=== PATIENT | male | born 1955 | race Caucasian/White ===

== ENCOUNTER 2018-05-05 19:31 | Emergency (ER) | payer BC ==
--- NOTE | 2018-05-05 19:57 | ER Document Report ---
ED Medical Screen (RME) - General Chief Complaint: Flank Pain Stated Complaint: ABNORMAL TEST RESULTS Time Seen by Provider: 05/05/18 19:56 TRAVEL OUTSIDE OF THE [place] IN LAST 30 DAYS: No - HPI Notes: 05/05/18 19:56 Left flank pain lateral pain ongoing since Wednesday went to urgent care elevated CK-MB sent to the ER for further evaluation for possible cardiac issues. States he did have a urinalysis performed however does not know the results. Patient denies any nausea vomiting or trauma. Patient has a chest x- ray performed showing no signs of rib injury EKG at the urgent care reviewed by myself shows no acute pathology. - Related Data Allergies/Adverse Reactions: No Known Allergies Allergy (Unverified 11/28/12 16:05) Past Medical History - Social History Frequency of alcohol use: Occasional Drug Abuse: None Renal/ Medical History: Denies: Hx Peritoneal Dialysis Review of Systems - Review of Systems Cardiovascular: Chest pain - Left lateral chest wall pain Physical Exam - Vital signs Vitals: Temp Pulse Resp BP Pulse Ox 97.9 F 93 18 169/71 H 98 05/05/18 19:34 05/05/18 19:34 05/05/18 19:34 05/05/18 19:34 05/05/18 19:34 - Respiratory Respiratory status: No respiratory distress Chest status: Nontender Breath sounds: Normal Chest palpation: Normal - Cardiovascular Rhythm: Regular Heart sounds: Normal auscultation Course - Vital Signs Vital signs: Temp Pulse Resp BP Pulse Ox 97.9 F 93 18 169/71 H 98 05/05/18 19:34 05/05/18 19:34 05/05/18 19:34 05/05/18 19:34 05/05/18 19:34 Doctor's Discharge - Discharge Referrals: HEAVENLY LOUIS MD [Primary Care Provider] - Follow up as needed
[2018-05-05 20:45] LABS: ABSOLUTE BASOPHILS # (AUTO) 0.1 10^3/uL (0.0-0.2); ABSOLUTE EOSINOPHILS # (AUTO) 0.3 10^3/uL (0.0-0.6); ABSOLUTE LYMPHOCYTES (AUTO) 2.1 10^3/uL (0.5-4.7); ABSOLUTE MONOCYTES (AUTO) 0.6 10^3/uL (0.1-1.4); ABSOLUTE NEUT (AUTO) 5.9 10^3/uL (1.7-8.2); APPEARANCE,URINE CLEAR; BASOPHILS % (AUTO) 0.9 % (0-2); BILIRUBIN,URINE NEGATIVE (NEGATIVE); COLOR,URINE YELLOW; EOSINOPHILS % (AUTO) 3.4 % (0-6); GLUCOSE, URINE 50 mg/dL (NEGATIVE); HEMATOCRIT 47.3 % (37.9-51.0); HEMOGLOBIN 16.6 g/dL (13.5-17.0); KETONES,URINE NEGATIVE (NEGATIVE); LEUKOCYTE ESTERASE,URINE NEGATIVE (NEGATIVE); LYMPHOCYTES % (AUTO) 23.6 % (13-45); MEAN CORPUSCULAR HEMOGLOBIN 31.8 pg (27.0-33.4); MEAN CORPUSCULAR HGB CONC 35.1 g/dL (32.0-36.0); MEAN CORPUSCULAR VOLUME 91 fl (80-97); MONOCYTES % (AUTO) 6.8 % (3-13); NITRITE,URINE NEGATIVE (NEGATIVE); PLATELET COUNT 235 10^3/uL (150-450); PROTEIN,URINE NEGATIVE (NEGATIVE); RED BLOOD COUNT 5.23 10^6/uL (4.35-5.55); RED CELL DISTRIBUTION WIDTH 13.1 % (11.5-14.0); SEGMENTED NEUTROPHILS % (AUTO) 65.3 % (42-78); TOTAL CELLS COUNTED % (AUTO) 100 %; URINE SPECIFIC GRAVITY 1.023; WHITE BLOOD COUNT 9.1 10^3/uL (4.0-10.5)
[2018-05-05 20:55] LABS: ANION GAP 12 (5-19); BLOOD UREA NITROGEN 14 mg/dL (7-20); CALCIUM 9.8 mg/dL (8.4-10.2); CARBON DIOXIDE 27 mmol/L (22-30); CHLORIDE 98 mmol/L (98-107); CREATINE KINASE 395 U/L (55-170); GLUCOSE 161 mg/dL (75-110); POTASSIUM 4.2 mmol/L (3.6-5.0); SODIUM 137.4 mmol/L (137-145)
[2018-05-05 21:06] LABS: CREATINE KINASE MB 4.64 ng/mL (<4.55)
[2018-05-05 21:17] LABS: TROPONIN I < 0.012 ng/mL
--- NOTE | 2018-05-05 21:19 | ER Document Report ---
ED General - General Chief Complaint: Flank Pain Stated Complaint: ABNORMAL TEST RESULTS Time Seen by Provider: 05/05/18 19:56 Mode of Arrival: Ambulatory Information source: Patient Notes: Patient is a 63-year-old male who presents with chief complaint of nonradiating left flank pain that started on Wednesday when he woke up. Patient reports the pain is worse after he eats. Patient reports the pain had resolved for a couple of days but returned on Wednesday. Patient denies any other symptoms to include nausea, vomiting, diarrhea, fever or dysuria. Patient reports that he went to [facility] urgent care to get the pain checked out as he has not been sleeping much due to the pain. Patient reports that he does not to drink adequate fluids during the day however he does work inside in air conditioned building and does not spend much time out in the heat. Patient is a smoker, uses EtOH rarely. Patient denies any chronic medical conditions other than bilateral knee pain which he takes BC powder for. [facility] sent the patient to the ER due to an elevated CK-MB. Patient presented a normal EKG as well as proof of a normal chest x-ray that were both done just prior to arrival , see RME note. TRAVEL OUTSIDE OF THE [place] IN LAST 30 DAYS: No - Related Data Allergies/Adverse Reactions: No Known Allergies Allergy (Unverified 11/28/12 16:05) Past Medical History - General Information source: Patient - Social History Smoking Status: Current Every Day Smoker Frequency of alcohol use: Occasional Drug Abuse: None Family History: Reviewed & Not Pertinent Patient has suicidal ideation: No Patient has homicidal ideation: No - Medical History Medical History: Negative Renal/ Medical History: Denies: Hx Peritoneal Dialysis Surgical Hx: Negative Review of Systems - Review of Systems Constitutional: No symptoms reported EENT: No symptoms reported Cardiovascular: No symptoms reported. denies: Chest pain, Palpitations Respiratory: No symptoms reported. denies: Hurts to breathe, Short of breath Gastrointestinal: No symptoms reported. denies: Abdomen distended, Diarrhea, Nausea, Vomiting Genitourinary: Flank pain. denies: Burning, Dysuria, Frequency, Hematuria Male Genitourinary: No symptoms reported Musculoskeletal: No symptoms reported Skin: No symptoms reported Hematologic/Lymphatic: No symptoms reported Neurological/Psychological: No symptoms reported Physical Exam - Vital signs Vitals: Temp Pulse Resp BP Pulse Ox 97.9 F 93 18 169/71 H 98 05/05/18 19:34 05/05/18 19:34 05/05/18 19:34 05/05/18 19:34 05/05/18 19:34 - Notes Notes: PHYSICAL EXAMINATION: GENERAL: Well-appearing, well-nourished and in no acute distress. HEAD: Atraumatic, normocephalic. EYES: Pupils equal round and reactive to light, extraocular movements intact, sclera anicteric, conjunctiva are normal. ENT: Nares patent, oropharynx clear without exudates. Moist mucous membranes. NECK: Normal range of motion, supple without lymphadenopathy LUNGS: Breath sounds clear to auscultation bilaterally and equal. No wheezes rales or rhonchi. HEART: Regular rate and rhythm without murmurs ABDOMEN: Soft, nontender, nondistended abdomen. No guarding, no rebound. No masses appreciated. Musculoskeletal: Normal range of motion, no pitting or edema. No cyanosis. Point tenderness over the left flank midaxillary. NEUROLOGICAL: Cranial nerves grossly intact. Normal speech, normal gait. Normal sensory, motor exams PSYCH: Normal mood, normal affect. SKIN: Warm, Dry, normal turgor, no rashes or lesions noted. Course - Re-evaluation Re-evalutation: Patient with point tenderness over the left flank, mid axillary just above the last rib. Patient has no CVA tenderness and no abdominal pain. Denies any dysuria or urinary frequency. Patient has EKG and chest x-ray that were just performed at the urgent care. I reviewed both of these are both unremarkable. Workup today reveals a normal CBC, normal BMP, CK elevated at 395, CK-MB is 4.64. Troponin is negative. Lipase is 67.5. Will repeat a delta troponin and likely discharge patient home. Delta troponin is negative, repeat EKG is unchanged from previous, normal sinus rhythm, no ST segment elevations or depressions. Patient reports significant relief of his pain after administration of Toradol and Flexeril. Patient's vital signs are stable. Patient will be discharged home with likely pleurisy versus musculoskeletal strain. - Vital Signs Vital signs: Temp Pulse Resp BP Pulse Ox 97.8 F 84 13 158/77 H 96 05/06/18 00:45 05/06/18 00:45 05/06/18 00:45 05/06/18 00:45 05/06/18 00:45 - Laboratory Result Diagrams: 05/05/18 20:08 05/05/18 20:08 Laboratory results interpreted by me: 05/05/18 05/05/18 05/05/18 20:08 20:08 20:08 Glucose 161 H Creatine Kinase 395 H CK-MB (CK-2) 4.64 H Urine Glucose (UA) 50 H Urine Urobilinogen 4.0 H Discharge - Discharge Clinical Impression: Pleurisy, Flank pain Condition: Stable Disposition: HOME, SELF-CARE Additional Instructions: Flank Pain We weren't able to prove an exact cause for your flank pain. Pain in the flank can be caused by a muscle strain or spasm. Sometimes a kidney stone causes pain, but can't be found on our tests. Infection in the kidney should be evident on a urine test. Early shingles can occasionally cause flank pain, without the rash that proves the diagnosis. On rare occasions, disease of the pancreas, aorta, spleen, or colon can create pain in the flank. At this time, there's no evidence of a dangerous condition, and it seems safe for you to be at home. If the pain goes away and does not come back, no further testing will be needed. If pain persists, or becomes more severe, we may need to repeat some tests or order additional new testing. Blood in the urine, urgency to urinate frequently, and pain that radiates to the groin can indicate a kidney stone. Fever may mean that the pain is due to infection, either of the kidney or the colon (diverticulitis). If your pain is early shingles, you should develop an eruption of blisters in the painful area within a few days. Call the doctor or return if you have pain that is spreading or becoming more severe, pain that does not resolve with time, fever, or any other new symptoms. Pleurisy Your chest pain has been diagnosed as pleuritis (pleurisy). This is an inflammation of the surface of the lung tissue. It can be caused by a virus or , occasionally, old scar tissue. It is painful but, for the most part, not a serious problem. This pain is usually made worse by deep breathing, coughing, or sudden movements of the upper body or arms. The treatment is relief of symptoms. It includes rest, antiinflammatory medication, and pain medicine. Resolution of the pain is usually rapid once antiinflammatory medication is started. Warning signs of a more serious problem include: a fever, shortness of breath, pain that radiates to your jaw, shoulders or arms, or coughing up bloody sputum. If any of these symptoms occur, call the physician at once. Your workup today was reassuring. It is very important that you follow-up with a primary care provider if you continue to have this pain. Take ibuprofen 600 mg every 6 hours for the pain. Return to the emergency department if you develop chest pain, shortness of breath or any other symptom that is concerning to you. Prescriptions: Methocarbamol [Robaxin 500 mg Tablet] 500 mg PO TID PRN #20 tablet PRN Reason: Referrals: HEAVENLY LOUIS MD [NO LOCAL MD] - Follow up as needed
[2018-05-05] MEDS ORDERED: KETOROLAC TROMETHAMINE 60 MG/2 ML SDV IM ONE (23:52)
[2018-05-05] MEDS ORDERED: CYCLOBENZAPRINE HCL 10 MG TABLET PO ONE (23:52)
[2018-05-06 01:04] VITALS: BP 158/77
--- NOTE | 2018-05-06 08:58 | EKG REPORT ---
SEVERITY:- NORMAL ECG - SINUS RHYTHM : Confirmed by: Grayson Griffin 06-May-2018 08:58:23
== END 2018-05-06 00:45 | disposition home or self-care (01) ==
LOC: ER 19:31
DX: R10.9 Unspecified abdominal pain (principal); R09.1 Pleurisy; F17.200 Nicotine dependence, unspecified, uncomplicated; M25.561 Pain in right knee; M25.562 Pain in left knee; G89.29 Other chronic pain; Z79.899 Other long term (current) drug therapy
CPT/HCPCS: 93005; 99284; 96372; 36415; 82553; 82550; 83690; 85025; 80048; 81001; 84484; 93010; J1885

== ENCOUNTER 2019-12-04 06:39 | Emergency (ER) | payer BC, OTHER ==
--- NOTE | 2019-12-04 06:41 | ER Document Report ---
ED Medical Screen (RME) - General Stated Complaint: S/S STROKE Time Seen by Provider: 12/04/19 06:39 Mode of Arrival: Medic Information source: Patient, Emergency Med Personnel Notes: Patient is a 64-year-old male presenting to the emergency department chief complaint of strokelike symptoms. Patient's last known well was around midnight when he went to bed. He woke up this morning with profound right sided weaknes s. Patient is unable to lift his right arm at all and has no strength in that arm. He is speaking in full and complete sentences. He will be sent straight for his head CT. I have greeted and performed a rapid initial assessment of this patient. A comprehensive ED assessment and evaluation of the patient, analysis of test results and completion of the medical decision making process will be conducted by additional ED providers. I have specifically instructed the patient or family members with the patient to immediately return to any nursing staff should anything change in the patient's condition or with their chief complaint. TRAVEL OUTSIDE OF THE [place] IN LAST 30 DAYS: No - Related Data Allergies/Adverse Reactions: No Known Allergies Allergy (Unverified 11/28/12 16:05) Past Medical History Renal/ Medical History: Denies: Hx Peritoneal Dialysis
--- NOTE | 2019-12-04 07:04 | RADIOLOGY REPORT (SQ) ---
EXAM DESCRIPTION: CT HEAD WITHOUT IV CONTRAST COMPLETED DATE/TME: 12/04/2019 06:39 CLINICAL HISTORY: stroke alert COMPARISON: None available TECHNIQUE: Axial CT of the head obtained from the skull apex to the skull base without contrast. FINDINGS: No acute intracranial hemorrhage identified. Focal small wedge-shaped region of hypodensity in the right cerebellum with questionable mild mass effect may represent subacute ischemic change. The ventricular system and sulcal spaces are not enlarged. Scattered areas of hypodensity throughout the supratentorial white matter are nonspecific and may be related to chronic small vessel ischemic change. The visualized paranasal sinuses and the mastoids are clear. No skull fracture identified. Visualized orbits and globes are unremarkable. Atherosclerotic calcification of the intracranial internal carotid arteries. IMPRESSION: 1. No acute intracranial hemorrhage. 2. Focal wedge-shaped region of hypodensity in the right cerebellum with possible mass effect may represent subacute or evolving chronic infarction. Urgent finding reported to Dr. Rendon at 12/04/2019 5:58 AM CDT This exam was performed according to our departmental dose-optimization program, which includes automated exposure control, adjustment of the mA and/or kV according to patient size and/or use of iterative reconstruction technique.
[2019-12-04 07:09] LABS: INTERNATIONAL RATION (INR) 0.93
[2019-12-04 07:10] LABS: PARTIAL THROMBOPLASTIN TIME 26.3 SEC (23.5-35.8)
[2019-12-04 07:11] LABS: ABSOLUTE BASOPHILS # (AUTO) 0.1 10^3/uL (0.0-0.2); ABSOLUTE EOSINOPHILS # (AUTO) 0.3 10^3/uL (0.0-0.6); ABSOLUTE LYMPHOCYTES (AUTO) 1.3 10^3/uL (0.5-4.7); ABSOLUTE MONOCYTES (AUTO) 0.5 10^3/uL (0.1-1.4); BASOPHILS % (AUTO) 0.9 % (0-2); EOSINOPHILS % (AUTO) 3.7 % (0-6); HEMATOCRIT 44.7 % (37.9-51.0); HEMOGLOBIN 15.7 g/dL (13.5-17.0); LYMPHOCYTES % (AUTO) 17.9 % (13-45); MEAN CORPUSCULAR HEMOGLOBIN 32.3 pg (27.0-33.4); MEAN CORPUSCULAR HGB CONC 35.2 g/dL (32.0-36.0); MEAN CORPUSCULAR VOLUME 92 fl (80-97); MONOCYTES % (AUTO) 6.4 % (3-13); PLATELET COUNT 200 10^3/uL (150-450); RED BLOOD COUNT 4.86 10^6/uL (4.35-5.55); RED CELL DISTRIBUTION WIDTH 13.8 % (11.5-14.0); SEGMENTED NEUTROPHILS % (AUTO) 71.1 % (42-78); TOTAL CELLS COUNTED % (AUTO) 100 %; WHITE BLOOD COUNT 7.1 10^3/uL (4.0-10.5)
[2019-12-04 07:12] LABS: PROTHROMBIN TIME 12.5 SEC (11.4-15.4)
--- NOTE | 2019-12-04 07:22 | RADIOLOGY REPORT (SQ) ---
AP Portable chest: 12/04/2019 6:20 AM CDT History: 64-year old patient with concern for stroke. Comparison: None available Findings: The cardiomediastinal silhouette is enlarged. No pneumothorax is seen. No acute airspace opacities are seen. No discrete pleural effusion is apparent. Impression: No acute airspace opacities are seen. The cardiomediastinal silhouette is enlarged.
[2019-12-04 07:30] LABS: ALBUMIN 3.9 g/dL (3.5-5.0); ALKALINE PHOSPHATASE 89 U/L (38-126); ANION GAP 5 (5-19); ASPARTATE AMINO TRANSFERASE 42 U/L (17-59); BILIRUBIN,TOTAL 0.3 mg/dL (0.2-1.3); BLOOD UREA NITROGEN 13 mg/dL (7-20); CALCIUM 8.9 mg/dL (8.4-10.2); CARBON DIOXIDE 30 mmol/L (22-30); CHLORIDE 103 mmol/L (98-107); CREATINE KINASE 205 U/L (55-170); GLUCOSE 250 mg/dL (75-110); POTASSIUM 4.5 mmol/L (3.6-5.0)
[2019-12-04 07:43] LABS: CREATINE KINASE MB 5.17 ng/mL (<4.55)
[2019-12-04 07:45] LABS: TROPONIN I < 0.012 ng/mL
--- NOTE | 2019-12-04 08:35 | RADIOLOGY REPORT (SQ) ---
EXAM DESCRIPTION: CTA NECK COMPLETED DATE/TIME: 12/04/2019 7:52 am REASON FOR STUDY: stroke alert COMPARISON: CT of the head without contrast from 12/04/2019. TECHNIQUE: Axial dynamic scanning technique with dynamic contrast enhancement through the extra-aircraft engine mechanic supervisor nial carotid and vertebral arteries. Multiplanar reconstruction. 3-D MIPS and Volume-rendered imag es acquired at the workstation and saved to PACS. Images are reviewed in soft tissue, bone, lung w indows. All CT scanners at this facility use dose modulation, iterative reconstruction, and/or weight based d osing when appropriate to reduce radiation dose to as low as reasonably achievable (ALARA). [facility]: Dose Right [facility]: CareDose [facility]: Dose Right [facility]: Teradose 4D [facility]: Cytheris CONTRAST TYPE AND DOSE: 70 mL Omnipaque 350- low osmolar. RENAL FUNCTION: Creatinine 0.5 milligrams/deciliter. LIMITATIONS: None. FINDINGS: AORTIC ARCH: There is a standard 3 vessel arch. The ostia of the brachiocephalic, left co mmon carotid and left subclavian arteries are patent. There is no dissection or aneurysm of the aort ic arch. RIGHT CAROTIDS: There are eccentric noncalcified atheromatous plaques at the carotid bifurcation roman t result in a less than 50% luminal stenosis. There is no dissection or aneurysm of the carotid sean dat. RIGHT VERTEBRAL: The pre foraminal and foraminal segments of the vertebral artery are occluded ; the vessel is then reconstituted at the level of C3 but it is diminutive in caliber compared to the contr alateral side. LEFT CAROTIDS: There are eccentric noncalcified atheromatous plaques at the carotid bifurcation that result in a 50-60% luminal stenosis. There is no dissection or aneurysm of the carotid arteries. LEFT VERTEBRAL: Patent without dissection, aneurysm or stenosis. OTHER: No cervical adenopathy or mass. The parotid and submandibular glands are symmetric in appeara nce. There is no mucosal mass or asymmetry. The thyroid gland is homogeneous. There are nonspecifi c borderline enlarged mediastinal lymph nodes that measure up to 12 mm in short axis diameter. There is paraseptal emphysema. OTHER: 3-D reconstructions confirm findings. IMPRESSION: 1. 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 2. Eccentric noncalcified atheromatous plaques at the carotid bifurcation that result between 50 to 60% luminal stenosis. COMMENT: Quality ID #[id number]: Measurements of distal internal carotid diameter were used as the denomina tor for stenosis measurement. TECHNICAL DOCUMENTATION: JOB ID: [id number] Quality ID # [id number]: Final reports with documentation of one or more dose reduction techniques (e.g., Au tomated exposure control, adjustment of the mA and/or kV according to patient size, use of iterative reconstruction technique) 2010 [employer]- All Rights Reserved Reading location - IP/workstation name: [email or web address]
--- NOTE | 2019-12-04 08:45 | RADIOLOGY REPORT (SQ) ---
EXAM DESCRIPTION: CTA HEAD COMPLETED DATE/TIME: 12/04/2019 7:52 am REASON FOR STUDY: stroke alert COMPARISON: CT of the head without contrast from 12/04/2019. TECHNIQUE: Post IV contrast scanning, thin section axial imaging through the brain to evaluate the a rterial structures. Source and MIP images are saved and reviewed on PACS. Advanced 3D imaging as volume-rendering, MIPs, SSD performed? yes All CT scanners at this facility use dose modulation, iterative reconstruction, and/or weight based d osing when appropriate to reduce radiation dose to as low as reasonably achievable (ALARA). [facility]: Dose Right [facility]: CareDose [facility]: Dose Right [facility]: Teradose 4D [facility]: Cazoomi CONTRAST TYPE AND DOSE: Contrast/concentration: Isovue 350.00 mg/ml; Total Contrast Delivered: 70.0 ml; Total Saline Delivered: 75.0 ml RENAL FUNCTION: Creatinine 0.5 milligrams/deciliter. LIMITATIONS: None. FINDINGS: NEWTOK OF GALARZA: Eccentric calcified and noncalcified plaques in the clinoid and supracli noid segments of the internal carotid arteries without associated stenosis, dissection or aneurysm. The anterior communicating artery is patent. The arborization pattern in the distribution of the CARMEN S and MCAs is symmetric. There is no high-grade stenosis, distal branch occlusion, or aneurysm of th e ACAS and MCAs. POSTERIOR CIRCULATION: As described on the CTA of the neck the pre foraminal and foraminal segments o f the right vertebral artery are occluded ; the extradural and intradural segments of the vessel are patent but diminutive in caliber compared to the contralateral side. The posterior inferior cerebell ar arteries are opacified with contrast. The basilar artery is normal in caliber. The arborization pattern in the distribution of the pipe foreman is symmetric. BRAIN: There is re- demonstration of a wedge-shaped area of hypoattenuation in the distribution of th e right posterior inferior cerebellar artery. There is no acute intracranial hemorrhage or pathologi c intracranial enhancement. BONES: Intact. SINUSES: No air-fluid level or mucoperiosteal thickening. OTHER: No other finding. IMPRESSION: 1. Re- demonstration of a wedge-shaped area of hypoattenuation in the distribution of th e right posterior inferior cerebellar artery. There is no acute intracranial hemorrhage or pathologi c intracranial enhancement. 2. The extradural and intradural segments of the right vertebral artery are patent but diminutive in caliber compared to the contralateral side. The posterior inferior cerebellar arteries are opacified with contrast. There is no stenosis, dissection, aneurysm or distal branch occlusion of the arterial intracranial vasculature. TECHNICAL DOCUMENTATION: JOB ID: [id number] Quality ID # [id number]: Final reports with documentation of one or more dose reduction techniques (e.g., Au tomated exposure control, adjustment of the mA and/or kV according to patient size, use of iterative reconstruction technique) 2010 [employer]- All Rights Reserved Reading location - IP/workstation name: [email or web address]
[2019-12-04 10:33] VITALS: BP 150/74
--- NOTE | 2019-12-04 12:51 | EKG REPORT ---
SEVERITY:- NORMAL ECG - SINUS RHYTHM : Confirmed by: Valentin Chandler MD 04-Dec-2019 12:50:35
--- NOTE | 2019-12-04 16:28 | ER Document Report ---
Entered by ANDRÉS BEEBE SCRIBE 12/04/19 0958 Acting as scribe for:JUAN CARLOS RAHMAN MD ED General - General Chief Complaint: S/S of Possible Stroke Stated Complaint: S/S STROKE Time Seen by Provider: 12/04/19 06:39 Mode of Arrival: Medic Information source: Patient Notes: This 64 year old male patient presents to the emergency department today with complaints of stroke-like symptoms with a last known well of midnight last night. Patient's states he woke up this morning with profound weakness and both his right lower and right upper extremity. Patient also complains of a right sided headache. TRAVEL OUTSIDE OF THE [place] IN LAST 30 DAYS: No - Related Data Allergies/Adverse Reactions: No Known Allergies Allergy (Unverified 11/28/12 16:05) Past Medical History - General Information source: Patient, Emergency Med Personnel - Social History Smoking Status: Current Every Day Smoker Frequency of alcohol use: None Drug Abuse: None Occupation: construction Family History: Reviewed & Not Pertinent Patient has suicidal ideation: No Patient has homicidal ideation: No Renal/ Medical History: Denies: Hx Peritoneal Dialysis Review of Systems - Review of Systems Constitutional: No symptoms reported EENT: No symptoms reported Cardiovascular: No symptoms reported Respiratory: No symptoms reported Gastrointestinal: No symptoms reported Genitourinary: No symptoms reported Male Genitourinary: No symptoms reported Musculoskeletal: No symptoms reported Skin: No symptoms reported Hematologic/Lymphatic: No symptoms reported Neurological/Psychological: See HPI, Weakness - right sided, Headaches -: Yes All other systems reviewed and negative Physical Exam - Vital signs Vitals: Pulse Ox 79 L 12/04/19 06:49 - Notes Notes: Physical Exam: General: Alert, appears well. HEENT: Normocephalic. Atraumatic. PERRL. Extraocular movements intact. Oroph arynx clear. Neck: Supple. Non-tender. Respiratory: No respiratory distress. Clear and equal breath sounds bilaterally. Cardiovascular: Regular rate and rhythm. Abdominal: Normal Inspection. Non-tender. No distension. Normal Bowel Sounds. Back: No gross abnormalities. Extremities Upper extremities: 1/5 strength in RUE, 5/5 strength in LUE. Lower extremities: 1/5 strength in RLE, 5/5 strength in LLE. Neurological: Normal cognition. AAOx4. Normal speech. See NIH. Psychological: Normal affect. Normal Mood. Skin: Warm. Dry. Normal color. Course - Re-evaluation Re-evalutation: 12/04/19 10:10 Patient is hemodynamically stable speech is clear oriented x3. Patient has return of motor skills and right upper and right lower extremity. Blending Technician strength now 3 out of 5 and 4 out of 5 in the lower right leg. There is some mild ataxia with [id number] on the right [id number] movement. - Vital Signs Vital signs: Temp Pulse Resp BP Pulse Ox 98.0 F 67 16 150/74 H 98 12/04/19 10:26 12/04/19 09:00 12/04/19 10:26 12/04/19 10:26 12/04/19 10:26 - Laboratory Result Diagrams: 12/04/19 06:55 12/04/19 06:55 Laboratory results interpreted by me: 12/04/19 12/04/19 06:55 06:55 Creatinine 0.50 L Glucose 250 H Creatine Kinase 205 H CK-MB (CK-2) 5.17 H - Diagnostic Test Radiology reviewed: Image reviewed, Reports reviewed Radiology results interpreted by me: 12/04/19 10:13 Chest x-ray shows no acute process. 12/04/19 10:14 CT of head shows right wedge-shaped subacute infarct hypotense hypodensity area in the right cerebellum. 12/04/19 10:29 CTA of head did not disclose any large vessel occlusion. CTA of neck showed an extraforaminal stenosis in the right vertebral artery. Reconstituted itself to patent flow above C3. Therefore no large vessel occlusion noted. - EKG Interpretation by Me Additional EKG results interpreted by me: 12/04/19 10:08 Feb 652 shows normal sinus rhythm no acute ST-T wave changes. Discharge - Discharge Clinical Impression: CVA (cerebral vascular accident) Condition: Fair Disposition: [facility] ED NIH Stroke Scale - NIH Stroke Scale *: 1. NIH scale should be completed with appropriate accompanying assessment tools. *: 2. The NIH should reflect what the patient is capable of doing and should not be coached by the clinician. 1a. Level of Consciousness: 0=Alert;keenly responsive -: 1=Drowsy -: 2=Obtunded -: 3=Coma/unresponsive or reflex to noxious stimuli. 1b. Orientation Questions: a. What month is it? -: b. How old are you? -: 0=Answers both questions correctly. -: 1=Answers one question correctly or patient is intubated or has orotracheal trauma. -: 2=Answers neither question correctly. 1b. Responses: 0 1c. Response to commands: a. Open and close eyes? -: b. Blending Technician and release hand? -: Credit is given despite weakness. Demonstration of task is permitted. Substitute command if hands cannot be used. -: 0=Performs both tasks correctly -: 1=Performs one task correctly -: 2=Performs neither task correctly 1c. Responses: 0 2. Gaze: Establish eye contact and instruct patient to "Follow my finger" -: 0=Normal -: 1=Partial gaze palsy. Gaze is abnormal in one or both eyes, but where forced deviation or total gaze paresis is not present. -: 2=Forced deviation or total gaze paresis. 2. Responses: 0 3. Visual Lucas: Sees fingers in all four quadrants. -: 0=No visual loss. -: 1=Partial hemianopsia. -: 2=Complete hemianopsia. -: 3=Bilateral hemianopsia (including Cortical blindness) 4. Facial Movement: Instruct patient to: -: a. Show me your teeth -: b. Raise your eyebrows -: c. Close your eyes -: d. Smile -: 0=Normal symmetrical movement -: 1=Minor paralysis (flattened nasolabial fold, asymmetry on smiling). -: 2=Partial paralysis (total or near total paralysis of lower face). -: 3=Complete paralysis of upper and lower face 4. Responses: 0 5. Motor functions (left arm): Alternate sides and extend each arm with palms down (90 degrees if sitting or 45 degrees for supine). -: 0=No drift;limb holds for full 10 seconds. -: 1=Drift; limb holds but drifts down before full 10 seconds, but does not hit bed. -: 2=Some effort against gravity; limb cannot get to or maintain position. -: 3=No effort against gravity; limb falls. -: 4=No movement. -: UN=Amputation, joint fusion, explain in comments. 5. Responses (left arm): 0 5. Motor Functions (right arm): Alternate sides and extend each arm with palms down (90 degrees if sitting or 45 degrees for supine). -: 0=No drift;limb holds for full 10 seconds. -: 1=Drift; limb holds but drifts down before full 10 seconds, but does not hit bed. -: 2=Some effort against gravity; limb cannot get to or maintain position. -: 3=No effort against gravity; limb falls. -: 4=No movement. -: UN=Amputation, joint fusion, explain in comments. 5. Responses (right arm): 4 6. Motor Functions (left leg): With patient lying supine, alternate sides and extend each leg (30 degrees always while supine). -: 0=No drift, leg holds position for full 5 seconds -: 1=Drift; leg falls before full 5 seconds but does not hit bed. -: 2=Some effort against gravity, leg falls to bed but some effort against gravity. -: 3=No effort against gravity, leg falls to bed immediately. -: 4=No movement. -: UN=Amputation, joint fusion; explain in comments. 6. Responses (left leg): 0 6. Motor Functions (right leg): With patient lying supine, alternate sides and extend each leg (30 degrees always while supine). -: 0=No drift, leg holds position for full 5 seconds -: 1=Drift; leg falls before full 5 seconds but does not hit bed. -: 2=Some effort against gravity, leg falls to bed but some effort against gravity. -: 3=No effort against gravity, leg falls to bed immediately. -: 4=No movement. -: UN=Amputation, joint fusion; explain in comments. 6. Responses (right leg): 4 7. Limb Ataxia: With eyes open instruct patient to: -: a. "Touch your finger to your nose". -: b. "Touch your heel to your vaughan" -: 0=Absent -: 1=Present in one limb. -: 2=Present in two limbs. -: UN=Amputation or joint fusion; explain in comments. 7. Responses: 1 8. Sensory: Test sensation using pinprick or noxious stimuli. Test as many body parts as possible. -: 0=Normal;no sensory loss -: 1=Mile to moderate sensory loss (patient feels pin prick but is less sharp on affected side). -: 2=Severe or total sensory loss. 8. Responses: 1 9. Best Language: Instruct patient to: -: a. "Describe what you see in this picture." -: b. "Name the items in this picture." -: c. "Read these sentences." -: 0=No aphasia, normal -: 1=Mild to moderate aphasia. -: 2=Severe aphasia -: 3=Mute, global aphasia, no usable speech or auditory comprehension. 10. Articulation, Dysarthia: Instruct patient to: -: "Read these words" or "Repeat these words" -: 0=Normal -: 1=Mild to moderate; patient may slur some words but can be understood without difficulty. -: 2=Severe; patients speech so slurred as to be unintelligible in the absence of dysphasia. -: UN=Intubated or other physical barrier, explain in comments. 10. Responses: 0 11. Extinction or inattention: 0=No abnormality -: 1= Visual, tactile, auditory, spatial, or personal inattention or extinction to bilateral simulation in one or the sensory modalities. -: 2=Profound matty-inattention or matty-inattention to more than one modality; do es not recognize own hand. Total Score: 10 Notes: old facial droop. Repeat NIH testing shows imrpvovemnent in right hemiparesis and is now able to right boat buffer plastic 3/5 and right lower leg 4/5. improved sensation in right upper and lower ext. I personally performed the services described in the documentation, reviewed and edited the documentation which was dictated to the scribe in my presence, and it accurately records my words and actions.
== END 2019-12-04 10:40 | disposition short-term general hospital (02) ==
LOC: ER 06:39
DX: I63.9 Cerebral infarction, unspecified (principal); G81.91 Hemiplegia, unspecified affecting right dominant side; R53.1 Weakness; F17.200 Nicotine dependence, unspecified, uncomplicated; Z86.73 Personal history of transient ischemic attack (TIA), and cerebral infarction without residual deficits
CPT/HCPCS: 36415; 70450; 70496; 70498; 71045; 80053; 82550; 82553; 84484; 85025; 85610; 85730; 93005; 93010; 99285

== ENCOUNTER 2019-12-25 08:15 | Emergency (ER) | payer OTHER ==
[2019-12-25 08:22] VITALS: BP 132/67
--- NOTE | 2019-12-25 09:28 | ER Document Report ---
Entered by ANDRÉS BEEBE SCRIBE 12/25/19 0846 Acting as scribe for:HUBER ALVARADO MD ED GI/ - General Chief Complaint: Pain With Urination Stated Complaint: BLOOD IN URINE Time Seen by Provider: 12/25/19 08:30 Primary Care Provider: [facility] [Provider Group] - Follow up in 3-5 days Mode of Arrival: Ambulatory Information source: Patient Notes: This 64-year-old male patient presents to the emergency department today with complaints of ethel hematuria which he noticed this morning just prior to arrival. Patient was seen here and transferred to [facility] where he was admitted from 12/03-12/05 for a subacute CVA. Patient states that he had a few episodes of hematuria while at [facility] but it subsided prior to leaving. Patient states they did not seem concerned at [facility] and it stopped before he left and hasn't happened again until today. Patient has an extensive smoking history and states he is now down to half a pack to three quarters of a pack a day. TRAVEL OUTSIDE OF THE [place] IN LAST 30 DAYS: No - Related Data Allergies/Adverse Reactions: No Known Allergies Allergy (Unverified 11/28/12 16:05) Past Medical History - General Information source: Patient - Social History Smoking Status: Current Every Day Smoker Cigarette use (# per day): Yes Frequency of alcohol use: None Drug Abuse: None Occupation: Contruction worker Lives with: Family Family History: Reviewed & Not Pertinent - Medical History Medical History: Negative Surgical Hx: Negative Review of Systems - Review of Systems Constitutional: No symptoms reported EENT: No symptoms reported Cardiovascular: No symptoms reported Respiratory: No symptoms reported Gastrointestinal: No symptoms reported Genitourinary: See HPI, Hematuria. denies: Pain Male Genitourinary: No symptoms reported Musculoskeletal: No symptoms reported Skin: No symptoms reported Hematologic/Lymphatic: No symptoms reported Neurological/Psychological: No symptoms reported -: Yes All other systems reviewed and negative Physical Exam - Vital signs Vitals: Temp Pulse Resp BP Pulse Ox 97.7 F 93 16 132/67 H 97 12/25/19 08:17 12/25/19 08:17 12/25/19 08:17 12/25/19 08:17 12/25/19 08:17 - Notes Notes: Physical Exam: General: Alert, appears well. HEENT: Normocephalic. Atraumatic. PERRL. Extraocular movements intact. Oropharynx clear. No carotid bruits. Neck: Supple. Non-tender. Respiratory: No respiratory distress. Clear and equal breath sounds bilaterally. Cardiovascular: Regular rate and rhythm. Abdominal: Obese. Non-tender. No distension. Normal Bowel Sounds. Genitourinary: Gross hematuria, dark purple colored. Back: No gross abnormalities. Extremities: Moves all four extremities. Upper extremities: Normal inspection. Normal ROM. Lower extremities: Normal inspection. No edema. Normal ROM. Neurological: Normal cognition. AAOx4. Normal speech. Psychological: Normal affect. Normal Mood. Skin: Warm. Dry. Normal color. Course - Vital Signs Vital signs: Temp Pulse Resp BP Pulse Ox 97.7 F 93 16 132/67 H 97 12/25/19 08:17 12/25/19 08:17 12/25/19 08:17 12/25/19 08:17 12/25/19 08:17 - Laboratory Result Diagrams: 12/25/19 09:39 12/25/19 09:39 Laboratory results interpreted by me: 12/25/19 12/25/19 08:56 09:39 Glucose 162 H Urine Protein 100 H Urine Glucose (UA) 50 H Urine Blood LARGE H Discharge - Discharge Clinical Impression: Pyuria Hematuria Qualifiers: Hematuria type: gross Qualified Code(s): R31.0 - Gross hematuria Condition: Stable Disposition: HOME, SELF-CARE Additional Instructions: Your evaluation shows a large amount of blood in pus cells in your urine. This is most likely due to urinary tract infection. Take the medications as prescribed. Drink plenty of fluids throughout the day in the evening and be sure to turn over frequently while you are in bed. Call [facility] today to schedule an appointment for a follow-up visit. RETURN TO THE EMERGENCY ROOM IF ANY NEW OR WORSENING SYMPTOMS. Prescriptions: Ciprofloxacin HCl [Cipro 500 mg Tablet] 500 mg PO BID #10 tablet Referrals: [facility] [Provider Group] - Follow up in 3-5 days I personally performed the services described in the documentation, reviewed and edited the documentation which was dictated to the scribe in my presence, and it accurately records my words and actions.
[2019-12-25 09:57] LABS: BILIRUBIN,URINE NEGATIVE (NEGATIVE); GLUCOSE, URINE 50 mg/dL (NEGATIVE); KETONES,URINE NEGATIVE (NEGATIVE); LEUKOCYTE ESTERASE,URINE NEGATIVE (NEGATIVE); NITRITE,URINE NEGATIVE (NEGATIVE); PROTEIN,URINE 100 mg/dL (NEGATIVE); URINE SPECIFIC GRAVITY 1.021; UROBILINOGEN,URINE NEGATIVE mg/dL (<2.0)
[2019-12-25 09:57] LABS: ABSOLUTE EOSINOPHILS # (AUTO) 0.1 10^3/uL (0.0-0.6); ABSOLUTE LYMPHOCYTES (AUTO) 1.3 10^3/uL (0.5-4.7); ABSOLUTE MONOCYTES (AUTO) 0.6 10^3/uL (0.1-1.4); ABSOLUTE NEUT (AUTO) 7.6 10^3/uL (1.7-8.2); BASOPHILS % (AUTO) 0.5 % (0-2); EOSINOPHILS % (AUTO) 1.4 % (0-6); HEMATOCRIT 42.7 % (37.9-51.0); HEMOGLOBIN 15.2 g/dL (13.5-17.0); LYMPHOCYTES % (AUTO) 13.8 % (13-45); MEAN CORPUSCULAR HEMOGLOBIN 32.6 pg (27.0-33.4); MEAN CORPUSCULAR HGB CONC 35.7 g/dL (32.0-36.0); MEAN CORPUSCULAR VOLUME 91 fl (80-97); MONOCYTES % (AUTO) 6.3 % (3-13); PLATELET COUNT 247 10^3/uL (150-450); RED BLOOD COUNT 4.68 10^6/uL (4.35-5.55); RED CELL DISTRIBUTION WIDTH 13.6 % (11.5-14.0); TOTAL CELLS COUNTED % (AUTO) 100 %; WHITE BLOOD COUNT 9.7 10^3/uL (4.0-10.5)
[2019-12-25 09:58] LABS: APPEARANCE,URINE TURBID; COLOR,URINE RED
[2019-12-25 10:16] LABS: ALBUMIN 4.2 g/dL (3.5-5.0); ALKALINE PHOSPHATASE 65 U/L (38-126); ANION GAP 9 (5-19); ASPARTATE AMINO TRANSFERASE 39 U/L (17-59); BILIRUBIN,TOTAL 0.5 mg/dL (0.2-1.3); BLOOD UREA NITROGEN 12 mg/dL (7-20); CALCIUM 9.6 mg/dL (8.4-10.2); CARBON DIOXIDE 25 mmol/L (22-30); CHLORIDE 104 mmol/L (98-107); GLUCOSE 162 mg/dL (75-110); POTASSIUM 4.3 mmol/L (3.6-5.0); TOTAL PROTEIN 7.4 g/dL (6.3-8.2)
[2019-12-25] MEDS ORDERED: CIPROFLOXACIN HCL 500 MG TABLET PO ONE (10:44)
== END 2019-12-25 11:56 | disposition home or self-care (01) ==
LOC: ER 08:15
DX: N39.0 Urinary tract infection, site not specified (principal); R31.0 Gross hematuria; R30.9 Painful micturition, unspecified; F17.210 Nicotine dependence, cigarettes, uncomplicated
CPT/HCPCS: 36415; 80053; 81001; 85025; 87086; 99283

== ENCOUNTER 2020-03-28 15:27 | Emergency (ER) | payer OTHER ==
[2020-03-28] MEDS ORDERED: MORPHINE SULFATE 10 MG/ML INJ IV ONE (17:23)
[2020-03-28] MEDS ORDERED: ONDANSETRON HCL INJ/PF 4 MG/2 ML SDV IV ONE (17:23)
[2020-03-28 17:45] LABS: ABSOLUTE LYMPHOCYTES (AUTO) 0.7 10^3/uL (0.5-4.7); ABSOLUTE MONOCYTES (AUTO) 0.5 10^3/uL (0.1-1.4); ABSOLUTE NEUT (AUTO) 11.2 10^3/uL (1.7-8.2); BASOPHILS % (AUTO) 0.2 % (0-2); HEMATOCRIT 39.4 % (37.9-51.0); HEMOGLOBIN 13.8 g/dL (13.5-17.0); MEAN CORPUSCULAR HEMOGLOBIN 32.3 pg (27.0-33.4); MEAN CORPUSCULAR VOLUME 92 fl (80-97); PLATELET COUNT 218 10^3/uL (150-450); RED BLOOD COUNT 4.28 10^6/uL (4.35-5.55); SEGMENTED NEUTROPHILS % (AUTO) 89.8 % (42-78); TOTAL CELLS COUNTED % (AUTO) 100 %; WHITE BLOOD COUNT 12.5 10^3/uL (4.0-10.5)
[2020-03-28 18:00] LABS: ANION GAP 8 (5-19); BLOOD UREA NITROGEN 10 mg/dL (7-20); CALCIUM 9.1 mg/dL (8.4-10.2); CARBON DIOXIDE 24 mmol/L (22-30); CHLORIDE 100 mmol/L (98-107); GLUCOSE 164 mg/dL (75-110); INTERNATIONAL RATION (INR) 1.04; PARTIAL THROMBOPLASTIN TIME 28.2 SEC (23.5-35.8); POTASSIUM 4.4 mmol/L (3.6-5.0); PROTHROMBIN TIME 13.6 SEC (11.4-15.4)
[2020-03-28] MEDS ORDERED: LIDOCAINE 2% URO-JET 5 ML KIT MM ONE (18:25)
--- NOTE | 2020-03-28 18:51 | ER Document Report ---
ED General - General Chief Complaint: Problem with Urinary Catheter Stated Complaint: CATHETER ISSUE Time Seen by Provider: 03/28/20 17:13 Primary Care Provider: AUGUSTINE SWANSON MD [Primary Care Provider] - Follow up as needed TRAVEL OUTSIDE OF THE [place] IN LAST 30 DAYS: No - HPI Notes: Chief complaint: Blockage of Acosta catheter History of present illness: 65-year-old male was seen for outpatient surgery for resection of a bladder tumor earlier today by Dr. Rony Graf (urology) at [facility] in [facility]. Patient was sent home with a Acosta catheter. This is become obstructed with blood clots any complaints of distention of his bladder and associated pain at this time. He describes his pain is 10/10. Patient says he is previously been on aspirin and Plavix but that these were discontinued approximately 1 week ago. - Related Data Allergies/Adverse Reactions: No Known Allergies Allergy (Verified 03/28/20 16:34) Home Medications: metformin, lisinopril, atorvastatin, norco, colac, bladder spasm med Past Medical History - General Information source: Patient, Relative - Social History Smoking Status: Current Every Day Smoker Chew tobacco use (# tins/day): No Frequency of alcohol use: Rare Drug Abuse: None Family History: Reviewed & Not Pertinent Patient has homicidal ideation: No - Past Medical History Cardiac Medical History: Reports: Hx Hypercholesterolemia, Hx Hypertension Endocrine Medical History: Reports: Hx Diabetes Mellitus Type 2 Renal/ Medical History: Denies: Hx Peritoneal Dialysis Past Surgical History: Reports: Hx Genitourinary Surgery - bladder tumor removal, Hx Testicular Surgery - vasectomy Review of Systems - Review of Systems Notes: Constitutional: Negative for fever. HENT: Negative for sore throat. Eyes: Negative for visual changes. Cardiovascular: Negative for chest pain. Respiratory: Negative for shortness of breath. Gastrointestinal: Negative for vomiting or diarrhea. Genitourinary: As per HPI Musculoskeletal: Negative for back pain. Skin: Negative for rash. Neurological: Negative for headaches, weakness or numbness. 10 point ROS negative except as marked above and in HPI. Physical Exam - Vital signs Vitals: Temp Pulse Resp BP Pulse Ox 98.2 F 109 H 20 141/74 H 98 03/28/20 15:34 03/28/20 15:34 03/28/20 15:34 03/28/20 15:34 03/28/20 15:34 - Notes Notes: GENERAL: Male patient of approximately stated age who appears restless and uncomfortable. SKIN: Jeff complexion. Good turgor no rashes. HEAD: Normocephalic atraumatic. EYES: PERRLA. EOMI. Conjunctivae and sclerae clear. EARS: CANALS AND TMS CLEAR. NOSE: CLEAR. MOUTH: Moist mucosa. Good dentition. No stridor or edema. No drooling. NECK: Supple. No masses or thyromegaly. No adenopathy. Carotids 2+ without b ruits. No JVD. BACK: Symmetrical without tenderness. CHEST: Respirations unlabored. Breath sounds clear and symmetrical. HEART: Regular rhythm. No murmur gallop or rub. ABDOMEN: Palpably distended bladder with mild tenderness. Bowel sounds normally active. No bruits. GENITALIA: Acosta catheter present with clotting blood noted in tubing. EXTREMITIES: No edema. No calf tenderness. Cap refill less than 1.5 seconds. Dorsalis pedis and posterior tibial pulses 3+ and symmetrical. NEUROLOGICAL: GCS 15. Alert and oriented x3. Normal gait. Fluent speech. Cranial nerves II through XII intact. Sensorimotor and cerebellar normal. Normal tone. PSYCHIATRIC: Anxious affect. Course - Re-evaluation Re-evalutation: 03/28/20 18:51 We initially attempted to irrigate the Acosta without success. Bladder scan at the bedside showed in excess of 300 cc in the bladder. I spoke with the patient's urologist, Dr. Rony Graf, by telephone and he requested that we insert a larger Acosta after removing the current Acosta. He also requests that we transfer the patient back to him as an ED to ED transfer to [facility]. 24 [place] catheter has been inserted by the nurse with immediate spontaneous drainage of urine. Patient symptomatically relieved with this. EMTALA form completed. - Vital Signs Vital signs: Temp Pulse Resp BP Pulse Ox 98.2 F 109 H 20 190/93 H 99 03/28/20 15:34 03/28/20 15:34 03/28/20 17:28 03/28/20 17:28 03/28/20 17:28 - Laboratory Result Diagrams: 03/28/20 17:32 03/28/20 17:32 Laboratory results interpreted by me: 03/28/20 03/28/20 17:32 17:32 WBC 12.5 H RBC 4.28 L Lymph % (Auto) 6.0 L Absolute Neuts (auto) 11.2 H Seg Neutrophils % 89.8 H Sodium 132.3 L Creatinine 0.49 L Glucose 164 H Discharge - Discharge Clinical Impression: Bladder outlet obstruction Condition: Stable Disposition: [facility] Referrals: AUGUSTINE SWANSON MD [Primary Care Provider] - Follow up as needed
[2020-03-28 19:42] VITALS: BP 112/59
== END 2020-03-28 20:01 | disposition short-term general hospital (02) ==
LOC: ER 15:27
DX: T83.091A Other mechanical complication of indwelling urethral catheter, initial encounter (principal); Y84.6 Urinary catheterization as the cause of abnormal reaction of the patient, or of later complication, without mention of misadventure at the time of the procedure; F17.200 Nicotine dependence, unspecified, uncomplicated; E78.00 Pure hypercholesterolemia, unspecified; E11.9 Type 2 diabetes mellitus without complications; Z98.890 Other specified postprocedural states; Z79.84 Long term (current) use of oral hypoglycemic drugs; Z79.899 Other long term (current) drug therapy
CPT/HCPCS: 99284; 51702; 96374; 96375; 36415; 85025; 85610; 85730; 80048; J2270; J2405; J3490